=== PATIENT | male | born 1995 | race Caucasian/White ===

== ENCOUNTER 2023-02-19 15:36 | Emergency (ER) | payer SELFPAY ==
[~2023-02-19] VITALS: Ht 170.2 cm; Wt 66.7 kg
[2023-02-19] MEDS ORDERED: AMOX500C2 PO (18:17)
[2023-02-19] MEDS ORDERED: GUAI-671 PO (18:17)
[2023-02-19 18:38] VITALS: BP 120/64; TEMP 98.6; O2SAT 97
== END 2023-02-19 18:38 | disposition home or self-care (01) ==
LOC: ER 15:41
DX: H66.92 Otitis media, unspecified, left ear (principal)